=== PATIENT | male | born 1980 | race Caucasian/White ===

== ENCOUNTER 2018-05-10 19:26 | Emergency (ER) | payer BC, SELFPAY | END 2018-05-10 19:58 | disposition home or self-care (01) | LOC: MADERS 19:26 | DX: J11.1 Influenza due to unidentified influenza virus with other respiratory manifestations (principal) | CPT/HCPCS: 99283 ==

== ENCOUNTER 2019-06-02 10:27 | Emergency (ER) | payer BC | END 2019-06-02 11:53 | disposition home or self-care (01) | LOC: MADERS 10:27 | DX: R50.9 Fever, unspecified (principal) | CPT/HCPCS: 87804; 99283 ==

== ENCOUNTER 2019-12-05 07:45 | Emergency (ER) | payer BC ==
[2019-12-05] MEDS ORDERED: Penicillin V Potassium 250 MG TAB ONE (08:22)
[2019-12-05] MEDS ORDERED: Acetaminophen 500 MG TAB ONE (08:22)
== END 2019-12-05 08:40 | disposition home or self-care (01) ==
LOC: MADERS 07:45
DX: K04.7 Periapical abscess without sinus (principal); K02.9 Dental caries, unspecified
CPT/HCPCS: 99283

== ENCOUNTER 2019-12-08 18:02 | Emergency (ER) | payer BC ==
[~2019-12-08 18:02] MED LIST: Iopamidol 370 76% 100 ML VIAL ONE
[2019-12-08] MEDS ORDERED: Ondansetron PF 4 MG/2 ML Vial ONE (18:39)
[2019-12-08] MEDS ORDERED: Morphine 4 MG/ML VIAL ONE ×2 (18:39→20:43)
[2019-12-08] MEDS ORDERED: Piperacillin/Tazobactam 4.5 GM VIAL ONE (18:39)
[2019-12-08] MEDS ORDERED: Sodium Chloride 0.9% 100 ML ONE (18:39)
[2019-12-08] MEDS ORDERED: Sodium Chloride 0.9% 2,000 ML ONE (18:39)
[2019-12-08 18:42] LABS: #Basophils 0.1 thou/uL (0.0-0.2); #Lymphocytes 0.6 thou/uL (1.20-3.40); #Monocytes 0.6 thou/uL (0.11-0.59); #Neutrophils 11.6 thou/uL (1.40-6.50); %Basophils 0.8 % (0.0-1.0); %Lymphocytes 4.8 % (21.0-51.0); %Monocytes 4.9 % (0.0-10.0); %Neutrophils 89.5 % (42.0-75.0); Hemoglobin 13.3 g/dL (14.0-18.0); Mean Corpuscular HGB CONC 34.4 g/dL (32.0-36.0); Mean Corpuscular Hemoglobin 30.8 pg (27.0-31.0); Mean Corpuscular Volume 89.3 fL (78.0-98.0); Mean Platelet Volume 8.4 fL (7.4-10.4); Platelet Count 234 thou/uL (130-400); RBC Distribution Width 10.4 % (11.5-14.5); Red Blood Cell (RBC) Count 4.32 mill/uL (4.70-6.10)
[2019-12-08 18:56] LABS: ALT (SGPT) 27 U/L (8-55); AST (SGOT) 28 U/L (5-34); Albumin 4.1 g/dL (3.5-5.0); Alkaline Phosphatase 51 U/L (40-110); Anion Gap 17 mmol/L (10-20); BUN (Urea Nitrogen) 11 mg/dL (8.9-20.6); Bilirubin, Total 0.9 mg/dL (0.2-1.2); Calc. Creatinine Clearance 0 mL/min (70-130); Calcium 9.2 mg/dL (7.8-10.44); Carbon Dioxide 19 mmol/L (22-29); Chloride 105 mmol/L (98-107); Estimated GFR-MDRD Greater than 90; Glucose 265 mg/dL (70-105); Potassium 3.3 mmol/L (3.5-5.1); Protein, Total 7.1 g/dL (6.0-8.3); Sodium 138 mmol/L (136-145)
[2019-12-08] MEDS ORDERED: Vancomycin HCl 750 MG VIAL ONE (19:46)
[2019-12-08] MEDS ORDERED: Acetaminophen 650 MG Suppository ONE (19:46)
[2019-12-08] MEDS ORDERED: Sodium Chloride 0.9% 250 ML 500 ML ONE (19:48)
--- NOTE | 2019-12-08 21:02 | CT ---
CT SOFT TISSUE NECK: 12/08/19 PROVIDED CLINICAL HISTORY: Face and neck swelling. FINDINGS: There is multifocal periapical lucency involving the mandibular and maxillary teeth bilaterally. Mult ifocal caries. Conspicuous periapical lucency and caries involve the posterior most left mandibular m olar. There is associated odontogenic abscess surrounding the mandible at this level measuring at [address] 3.4 cm in greatest transverse dimension. There is reticulation of the overlying subcutaneous adipo se layer and enlargement of the adjacent musculature. The submandibular and parotid glands appear unremarkable. The oral cavity, oropharyngeal and hypophar yngeal cavities, larynx, visualized trachea and thyroid appear unremarkable. The visualized lung apic es appear clear. There is no prevertebral soft tissue swelling or fluid density. The epiglottis and a ryepiglottic folds appear normal. IMPRESSION: Conspicuous dental caries and periodontal disease with associated facial cellulitis and odontogenic a bscess about the posterior most left mandibular molar. POS: [facility]IN
== END 2019-12-08 20:59 | disposition short-term general hospital (02) ==
LOC: MADERS 18:02
DX: M27.2 Inflammatory conditions of jaws (principal); Z79.899 Other long term (current) drug therapy
CPT/HCPCS: 70491; 80053; 83605; 85025; 87040; 96361; 96365; 96367; 96375; 96376; J2270; J2405; J2543; J3370; J3490; J7050; Q9967

== ENCOUNTER 2020-01-02 05:08 | Emergency (ER) | payer BC, OTHER ==
[2020-01-02] MEDS ORDERED: Ibuprofen 800 MG TAB ONE (05:44)
[2020-01-02] MEDS ORDERED: Acetaminophen 500 MG TAB ONE (05:44)
[2020-01-02 16:36] LABS: SARS-CoV-2 MS2 Positive; SARS-CoV-2 N Gene Negative; SARS-CoV-2 S Gene Negative; SARS-CoV-2 by NAA Not Detected (NotDetected); SARS-CoV-2 orf1ab Negative
== END 2020-01-02 06:00 | disposition home or self-care (01) ==
LOC: MADERS 05:08
DX: R50.9 Fever, unspecified (principal); R51.9 Headache, unspecified; R05 Cough; Z20.828 Contact with and (suspected) exposure to other viral communicable diseases
CPT/HCPCS: 87635; 87804; 99283; U0003

== ENCOUNTER 2021-02-26 13:48 | Emergency (ER) | payer BC, MEDICAID ==
[2021-02-26] MEDS ORDERED: Dexamethasone 4 MG TAB ONE (14:56)
[2021-02-26] MEDS ORDERED: Dexamethasone 4 mg/ml Vial ONE (14:56)
== END 2021-02-26 15:18 | disposition home or self-care (01) ==
LOC: MADERS 13:48
DX: S83.91XA Sprain of unspecified site of right knee, initial encounter (principal); M25.461 Effusion, right knee; X50.9XXA Other and unspecified overexertion or strenuous movements or postures, initial encounter
CPT/HCPCS: 99283; J1100; J8540

== ENCOUNTER 2021-03-11 16:39 | Emergency (ER) | payer BC, MEDICAID | END 2021-03-11 18:36 | disposition home or self-care (01) | LOC: MADERS 16:39 | DX: R50.9 Fever, unspecified (principal); Z20.822 Contact with and (suspected) exposure to COVID-19 | CPT/HCPCS: 99283 ==

== ENCOUNTER 2024-12-14 14:45 | Emergency (ER) | payer BC, OTHER ==
[2024-12-14] MEDS ORDERED: CEFAZOLIN 1 GM VIAL ONE (16:23)
[2024-12-14] MEDS ORDERED: cefTRIAXone (ROCEPHIN) 1 GM VIAL ONE (16:23)
[2024-12-14] MEDS ORDERED: Boostrix 0.5 ML (Tdap) VIAL (>/=7 yrs of age) ONE (16:24)
[2024-12-14 16:30] LABS: #Basophils 0.1 thou/uL (0.0-0.2); #Eosinophils 0.0 thou/uL (0.0-0.7); #Lymphocytes 0.9 thou/uL (1.20-3.40); #Monocytes 0.4 thou/uL (0.11-0.59); #Neutrophils 4.2 thou/uL (1.40-6.50); %Basophils 1.4 % (0.0-1.0); %Eosinophils 0.6 % (0.0-10.0); %Lymphocytes 16.8 % (21.0-51.0); %Monocytes 7.2 % (0.0-10.0); %Neutrophils 74.0 % (42.0-75.0); Hematocrit 46.3 % (42.0-52.0); Hemoglobin 15.9 g/dL (14.0-18.0); Mean Corpuscular Hemoglobin 31.9 pg (27.0-31.0); Mean Corpuscular Volume 93.2 fl (78.0-98.0); Platelet Count 219 10x3/uL (130-400); Red Blood Cell (RBC) Count 4.97 mill/uL (4.70-6.10); White Blood Cell (WBC) Count 5.6 10x3/uL (4.8-10.8)
[2024-12-14 16:42] LABS: ALT (SGPT) 43 U/L (Less than 45); AST (SGOT) 50 U/L (11-34); Albumin 5.0 g/dL (3.1-4.5); Alkaline Phosphatase 56 U/L (40-110); Anion Gap 16 mmol/L (10-20); BUN (Urea Nitrogen) 13 mg/dL (8.9-20.6); Bilirubin, Total 1.0 mg/dL (0.3-1.2); Calc. Creatinine Clearance 0 mL/min (70-130); Calcium 9.9 mg/dL (7.8-10.44); Carbon Dioxide 24 mmol/L (22-29); Chloride 106 mmol/L (98-107); Globulin 3.2 g/dL (2.4-3.5); Glucose 104 mg/dL (70-105); Potassium 4.0 mmol/L (3.5-5.1); Sodium 142 mmol/L (136-145)
== END 2024-12-14 17:12 | disposition short-term general hospital (02) ==
LOC: MADERS 14:45
DX: S68.127A Partial traumatic metacarpophalangeal amputation of left little finger, initial encounter (principal); Z23 Encounter for immunization; W23.0XXA Caught, crushed, jammed, or pinched between moving objects, initial encounter; Y99.0 Civilian activity done for income or pay
CPT/HCPCS: 64450; 80053; 85025; 90471; 90715; 96365; 96375; J0665; J0690; J0696